=== PATIENT | female | born 1970 | race Caucasian/White ===

== ENCOUNTER 2021-03-16 17:33 | Emergency (ER) | payer BC, OTHER ==
[~2021-03-16] VITALS: Ht 160 cm; Wt 54.0 kg
--- NOTE | 2021-03-16 17:54 | EKG ---
[address] [address] Test Date: 2021-03-16 Test Time: 17:37:00 Pat Name: ADRIANA GRIGSBY Department: Room: Gender: F Admissions Counselor: HAILEE : 1970 Requested By: VERENICE JORDAN Order Number: [id number] Reading MD: Measurements Intervals [place] Rate: 90 P: 32 TX: 118 QRS: 35 QRSD: 86 T: 149 QT: 334 QTc: 412 Interpretive Statements SINUS RHYTHM LEFT ATRIAL ABNORMALITY T ABNORMALITY IN LATERAL LEADS ABNORMAL ECG RI6.02 No previous ECG available for comparison
--- NOTE | 2021-03-16 17:57 | PHYS DOC ---
General Adult EDM: Chief Complaint: CHEST PAIN HPI: HPI: 50-year-old female presents with chest pain and headache. Patient was having chest pressure and left arm tingling yesterday. It continued today. She has had some shortness of breath that is worse than normal. She does not currently have any chest pain but she has a right frontal headache that is a throbbing sensation. She does not typically get headaches. The patient had quadruple bypass surgery in December. She went in for routine check and ended up having quadruple bypass. The patient had no chest pain or symptoms prior to that surgery. She has had no recent changes to medications. She takes baby aspirin and metoprolol. Patient denies fever or chills. (VERENICE JORDAN DO) Review of Systems: Review of Systems: Constitutional: Denies fever or chills Eyes: Denies change in visual acuity HENT: Denies nasal congestion or sore throat Respiratory: Denies cough or shortness of breath Cardiovascular: Chest pain GI: Denies abdominal pain, nausea, vomiting, bloody stools or diarrhea : Denies dysuria Musculoskeletal: Denies back pain or joint pain Integument: Denies rash Neurologic: Headache. Denies focal weakness or sensory changes Endocrine: Denies polyuria or polydipsia Lymphatic: Denies swollen glands Psychiatric: Denies depression or anxiety (VERENICE JORDAN DO) Allergies: Allergies: Allergies Coded Allergies Type Severity Reaction Last Updated Verified Penicillins Allergy Unknown 03/16/21 Yes Sulfa (Sulfonamide Antibiotics) Allergy Unknown 03/16/21 Yes (VERENICE JORDAN DO) Physical Exam: PE: Constitutional: Well developed, well nourished, no acute distress, non-toxic appearance. [] HENT: Normocephalic, atraumatic, bilateral external ears normal, oropharynx moist, no oral exudates, nose normal. [] Eyes: PERRLA, EOMI, conjunctiva normal, no discharge. [] Neck: Normal range of motion, no tenderness, supple, no stridor. [] Cardiovascular:Heart rate regular rhythm, no murmur [] Lungs & Thorax: Bilateral breath sounds clear to auscultation [] Abdomen: Bowel sounds normal, soft, no tenderness, no masses, no pulsatile masses. [] Skin: Warm, dry, no erythema, no rash. Multiple tattoos. [] Back: No tenderness, no CVA tenderness. [] Extremities: No tenderness, no cyanosis, no clubbing, ROM intact, no edema. [] Neurologic: Alert and oriented X 3, normal motor function, normal sensory function, no focal deficits noted. [] Psychologic: Affect normal, judgement normal, mood normal. [] (VERENICE OJRDAN DO) EKG: EKG: Sinus rhythm, rate 90, normal axis, no ST elevation or depression, inverted T wave in V6. [] (VERENICE JORDAN DO) Radiology/Procedures: Radiology/Procedures: [] (VERENICE JORDAN DO) Heart Score: C/O Chest Pain: Yes HEART Score for Chest Pain: HEART Score for Chest Pain Response (Comments) Value History Slighlty/Non-Suspicious 0 ECG Nonspecific Repolarizatio 1 Age >45 - < 65 1 Risk Factors >3 Risk Factors or Hx CAD 2 Troponin < Normal Limit 0 Total 4 Risk Factors: Risk Factors: DM, Current or recent (<one month) smoker, HTN, HLP, family history of CAD, obesity. Risk Scores: Score 0 - 3: 2.5% MACE over next 6 weeks - Discharge Home Score 4 - 6: 20.3% MACE over next 6 weeks - Admit for Clinical Observation Score 7 - 10: 72.7% MACE over next 6 weeks - Early Invasive Strategies (VERENICE JORDAN DO) Course & Med Decision Making: Course & Med Decision Making Pertinent Labs and Imaging studies reviewed. (See chart for details) The patient's EKG has one inverted T wave in V6, but is otherwise unremarkable. The rest of her work-up is pending. I am signing the patient out to Dr. Da Silva at 1800. [] (VERENICE JORDAN DO) Course & Med Decision Making Patient's care transferred to me at checkout for chest pain work-up. Patient with quadruple bypass in December on aspirin and metoprolol. Vital signs notable for hypertension. Patient states chest pain is 0-1 now and much better than earlier. Denies any Covid/flu/cold symptoms. Laboratory analysis notable for elevated troponin and BNP. EKG with no STEMI but signs of ischemia in lateral leads and aVR. Started on heparin, gave aspirin, gave beta-ting, gave statin and nitroglycerin. Discussed findings with patient and recommended admission. Patient agreed and requested to be transferred to [facility] where she had her bypass done. Discussed patient with [facility] transfer.Dr. Lambert who agreed with plan of transfer and admission for NSTEMI and cardiovascular evaluation and treatment. (MAXINE DA SILVA MD) Dragon Disclaimer: Dragashley Disclaimer: This electronic medical record was generated, in whole or in part, using a voice recognition dictation system. (VERENICE JORDAN DO) Departure Departure: Impression: Primary Impression: Chest pain Additional Impression: History of heart bypass surgery Referrals: PCP,NO (PCP) VERENICE JORDAN DO March 16, 2021 17:57 MAXINE DA SILVA MD March 16, 2021 19:01
[2021-03-16] MEDS ORDERED: ASPIRIN CHEWABLE 81 MG TABLET. PO ONE (18:00)
[2021-03-16 18:16] LABS: BASO # 0.1 x10^3/uL (0.0-0.2); BASO % 2 % (0-3); EOS # 0.3 x10^3/uL (0.0-0.7); EOS % 4 % (0-3); HEMATOCRIT 32.3 % (36.0-47.0); HEMOGLOBIN 10.2 g/dL (12.0-15.5); LYMPH # 1.4 x10^3/uL (1.0-4.8); LYMPH % 23 % (24-48); MEAN CORPUSCULAR HEMOGLOBIN 26 pg (25-35); MEAN CORPUSCULAR HGB CONC 32 g/dL (31-37); MEAN CORPUSCULAR VOLUME 83 fL (79-100); MONO # 0.3 x10^3/uL (0.0-1.1); MONO % 6 % (0-9); NEUT # 4.2 x10^3uL (1.8-7.7); NEUT % 66 % (31-73); PLATELET COUNT 230 x10^3/uL (140-400); RED BLOOD COUNT 3.89 x10^6/uL (3.50-5.40); RED CELL DISTRIBUTION WIDTH 15.8 % (11.5-14.5); WHITE BLOOD COUNT 6.4 x10^3/uL (4.0-11.0)
--- NOTE | 2021-03-16 18:18 | RAD ---
XR CHEST 1V History: Reason: CP / Spl. Instructions: / History: Comparison: None. Findings: No consolidation or pleural effusion. Normal heart size. No pneumothorax. Surgical clips right upper quadrant. Prior median sternotomy. Impression: 1. No acute cardiopulmonary process. Electronically signed by: Hao Sterling DO (03/16/2021 6:15 PM) [facility]
[2021-03-16 18:25] LABS: GFR 58.9; POTASSIUM 3.9 mmol/L (3.5-5.1)
[2021-03-16 18:31] LABS: ALBUMIN 3.7 g/dL (3.4-5.0); TOTAL BILIRUBIN 0.3 mg/dL (0.2-1.0); TOTAL PROTEIN 7.5 g/dL (6.4-8.2)
--- NOTE | 2021-03-16 18:33 | RAD ---
Exam: CT head INDICATION: Headache, chest pain, hypertension TECHNIQUE: Sequential axial images through the head were obtained without the administration of IV co ntrast. Exposure: One or more of the following in the visualized dose reduction techniques were utilized for this examination: 1. Automated exposure control 2. Adjustment of the MA and/or KV according to patient size 3. Use of iterative of reconstructive technique Comparisons: None FINDINGS: No focal parenchymal lesion or hemorrhage is identified. There is no midline shift or sulcal effaceme nt. No acute vascular territory infarction is identified. Roth-white distinction is preserved. The ventricular system is within normal limits without compression hydrocephalus. The basal cisterns are well maintained. There is complete opacification of the left maxillary sinus. Hyperattenuating material noted within t he left maxillary sinus. No acute fractures. IMPRESSION: Incompletely visualized complete opacification of the left maxillary sinus. Findings could relate to sinusitis however direct visualization is recommended to exclude neoplasm/polyp. Electronically signed by: Nayan Salazar MD (03/16/2021 6:31 PM) [facility]
[2021-03-16] MEDS ORDERED: MORPHINE SULFATE 2 MG/ML DISP.SYRIN. IV ONE (19:15)
[2021-03-16] MEDS: NITROGLYCERIN SUBLINGUAL 0.4 MG BOTTLE OF 25. SL PRN ×3 (19:17→20:11)
[2021-03-16] MEDS ORDERED: METOPROLOL TART IMMED RELEASE 25 MG TABLET. PO ONE (20:00)
[2021-03-16] MEDS ORDERED: ATORVASTATIN CALCIUM 20 MG TABLET PO ONE (20:15)
[2021-03-16 20:43] VITALS: BP 149/96
== END 2021-03-16 21:50 | disposition short-term general hospital (02) ==
LOC: ER 17:33
DX: R07.89 Other chest pain (principal); R51.9 Headache, unspecified; Z88.0 Allergy status to penicillin; Z88.2 Allergy status to sulfonamides
CPT/HCPCS: 36415; 70450; 71045; 80053; 83880; 84484; 85025; 93005; 96374; 99285; J2270

== ENCOUNTER 2021-03-27 15:02 | Emergency (ER) | payer BC ==
[~2021-03-27] VITALS: Ht 160 cm; Wt 54.0 kg
--- NOTE | 2021-03-27 15:25 | PHYS DOC ---
Past History Past Medical History: CAD, Cancer, High Cholesterol, Hypertension Past Surgical History: Coronary Bypass Surgery, Gastric Bypass, Hysterectomy, Other Additional Past Surgical Histo: TUMMY TUCK, BREAST AUGMENTATION, LITHROTRIPSY Alcohol Use: None General Adult EDM: Chief Complaint: SHORTNESS OF BREATH HPI: HPI: 50-year-old female presents with shortness of breath. I saw the patient recently in the ER with similar complaint when she had chest pain at that time. Patient denies chest pain at this time. She was at work and just felt like she could not catch her breath. She is required to wear a mask at work because she is not vaccinated for COVID-19. The patient also has a mild headache. During her last visit to the ER she was transferred to [facility] for elevated troponin. She states that they did CT of the chest and did not find a pulmonary embolus. They trended her troponin unchanged her medications but sent her home. She did not have a stress test or cardiac cath. She denies fever or chills. She denies abdominal pain, nausea, vomiting, dysuria, urinary frequency or constipation. Review of Systems: Review of Systems: Constitutional: Denies fever or chills Eyes: Denies change in visual acuity HENT: Denies nasal congestion or sore throat Respiratory: Shortness of breath. Cardiovascular: Denies chest pain or edema GI: Denies abdominal pain, nausea, vomiting, bloody stools or diarrhea : Denies dysuria Musculoskeletal: Denies back pain or joint pain Integument: Denies rash Neurologic: Denies headache, focal weakness or sensory changes Endocrine: Denies polyuria or polydipsia Lymphatic: Denies swollen glands Psychiatric: Denies depression or anxiety Allergies: Allergies: Allergies Coded Allergies Type Severity Reaction Last Updated Verified Penicillins Allergy Unknown 03/16/21 Yes Sulfa (Sulfonamide Antibiotics) Allergy Unknown 03/16/21 Yes magnesium Allergy Unknown 03/27/21 Yes paclitaxel Allergy Unknown 03/16/21 Yes Physical Exam: PE: Constitutional: Well developed, well nourished, no acute distress, non-toxic appearance. [] HENT: Normocephalic, atraumatic, bilateral external ears normal, oropharynx moist, no oral exudates, nose normal. [] Eyes: PERRLA, EOMI, conjunctiva normal, no discharge. [] Neck: Normal range of motion, no tenderness, supple, no stridor. [] Cardiovascular: Heart rate 70, regular rhythm, no murmur [] Lungs & Thorax: Bilateral breath sounds clear to auscultation [] Abdomen: Bowel sounds normal, soft, no tenderness, no masses, no pulsatile masses. [] Skin: Warm, dry, no erythema, no rash. [] Back: No tenderness, no CVA tenderness. [] Extremities: No tenderness, no cyanosis, no clubbing, ROM intact, no edema. [] Neurologic: Alert and oriented X 3, normal motor function, normal sensory function, no focal deficits noted. [] Psychologic: Affect normal, judgement normal, mood anxious. [] Current Patient Data: Vital Signs: Vital Signs Date Time Temp Pulse Resp B/P (MAP) Pulse Ox O2 Delivery O2 Flow Rate FiO2 03/27/21 15:09 97.8 72 18 139/96 (110) 98 Room Air EKG: EKG: Sinus rhythm, rate 70, normal axis, no ST elevation or depression. [] Radiology/Procedures: Radiology/Procedures: [] Impressions: EXAM: CHEST 1 VIEW History: Chest pain COMPARISON: 03/16/2021 TECHNIQUE: Single portable radiograph of the chest FINDINGS: The cardiac silhouette is unremarkable. The lungs are clear bilaterally. The costophrenic sulci are clear and well demarcated. Median sterno torito wires identified. IMPRESSION: No radiographic evidence of an acute cardiopulmonary process. Electronically signed by: Chris Issa MD (03/27/2021 3:36 PM) [id number] DICTATED AND SIGNED BY: CHRIS ISSA MD DATE: 03/27/21 1534 CC: VERENICE JORDAN DO; [facility] ~MTH0 0 Heart Score: C/O Chest Pain: No Risk Factors: Risk Factors: DM, Current or recent (<one month) smoker, HTN, HLP, family history of CAD, obesity. Risk Scores: Score 0 - 3: 2.5% MACE over next 6 weeks - Discharge Home Score 4 - 6: 20.3% MACE over next 6 weeks - Admit for Clinical Observation Score 7 - 10: 72.7% MACE over next 6 weeks - Early Invasive Strategies Course & Med Decision Making: Course & Med Decision Making Pertinent Labs and Imaging studies reviewed. (See chart for details) The patient's labs are unremarkable except for an elevated troponin of 0.293. This is slightly less than her previous visit but certainly elevated. Her EKG is negative for ST elevation. The patient has had her cardiac care at [facility]. I contacted them and spoke with the repossession agent, Dr. Hutton and she believes the patient needs further work-up and should be transferred back to [facility]. Dr. Go, the transfer doctor has accepted her for transfer and admission. The patient will go by ambulance. [] Dragon Disclaimer: Dragon Disclaimer: This electronic medical record was generated, in whole or in part, using a voice recognition dictation system. Departure Departure: Impression: Primary Impression: Elevated troponin Disposition: 02 SHORT TERM HOSPITAL Condition: GUARDED Referrals: [facility] (PCP) VERENICE JORDAN DO Mar 27, 2021 15:25
--- NOTE | 2021-03-27 15:39 | RAD ---
EXAM: CHEST 1 VIEW History: Chest pain COMPARISON: 03/16/2021 TECHNIQUE: Single portable radiograph of the chest FINDINGS: The cardiac silhouette is unremarkable. The lungs are clear bilaterally. The costophrenic sulci are clear and well demarcated. Median sternotomy wires identified. IMPRESSION: No radiographic evidence of an acute cardiopulmonary process. Electronically signed by: Chris Issa MD (03/27/2021 3:36 PM) [id number]
[2021-03-27 15:55] LABS: BASO # 0.1 x10^3/uL (0.0-0.2); BASO % 1 % (0-3); EOS # 0.3 x10^3/uL (0.0-0.7); EOS % 4 % (0-3); HEMATOCRIT 31.5 % (36.0-47.0); HEMOGLOBIN 9.9 g/dL (12.0-15.5); LYMPH # 1.2 x10^3/uL (1.0-4.8); LYMPH % 17 % (24-48); MEAN CORPUSCULAR HEMOGLOBIN 26 pg (25-35); MEAN CORPUSCULAR HGB CONC 32 g/dL (31-37); MEAN CORPUSCULAR VOLUME 83 fL (79-100); MONO # 0.4 x10^3/uL (0.0-1.1); MONO % 6 % (0-9); NEUT # 4.9 x10^3uL (1.8-7.7); NEUT % 72 % (31-73); PLATELET COUNT 225 x10^3/uL (140-400); WHITE BLOOD COUNT 6.9 x10^3/uL (4.0-11.0)
[2021-03-27 16:25] LABS: CALCIUM 8.9 mg/dL (8.5-10.1); GFR 58.9; POTASSIUM 4.1 mmol/L (3.5-5.1)
[2021-03-27 16:30] LABS: ALBUMIN 3.4 g/dL (3.4-5.0); TOTAL BILIRUBIN 0.3 mg/dL (0.2-1.0); TOTAL PROTEIN 6.8 g/dL (6.4-8.2)
--- NOTE | 2021-03-27 16:38 | EKG ---
[address] [address] Test Date: 2021-03-27 Test Time: 15:21:03 Pat Name: ADRIANA GRIGSBY Department: Room: Gender: F Warehouse Record Clerk: ED9 : 1970 Requested By: VERENICE JORDAN Order Number: [id number] Reading MD: Measurements Intervals [place] Rate: 70 P: 26 DC: 128 QRS: 34 QRSD: 86 T: 150 QT: 390 QTc: 424 Interpretive Statements SINUS RHYTHM LEFT ATRIAL ABNORMALITY ST & T ABNORMALITY, CONSIDER HIGH LATERAL ISCHEMIA OR LEFT VENTRICULAR STRAIN ABNORMAL ECG RI6.02 No previous ECG available for comparison
[2021-03-27 17:48] VITALS: BP 133/77
[2021-03-27 19:54] LABS: BILIRUBIN,URINE NEG (NEG); CLARITY,URINE CLEAR; COLOR,URINE STRAW; GLUCOSE,URINE NEG (NEG); NITRITE,URINE POS (NEG); UROBILINOGEN,URINE 0.2 mg/dL (0.2 mg/dL)
[2021-03-27 19:55] LABS: BACTERIA,URINE MOD /HPF (0-FEW); RBC,URINE 0 /HPF (0-2); SQUAMOUS EPITHELIAL CELL,UR FEW /LPF; WBC,URINE OCC /HPF (0-4)
== END 2021-03-27 20:35 | disposition short-term general hospital (02) ==
LOC: ER 15:02
DX: R77.8 Other specified abnormalities of plasma proteins (principal); R07.9 Chest pain, unspecified; E78.5 Hyperlipidemia, unspecified; I10 Essential (primary) hypertension; Z88.0 Allergy status to penicillin; Z88.2 Allergy status to sulfonamides; Z88.8 Allergy status to other drugs, medicaments and biological substances; Z90.710 Acquired absence of both cervix and uterus
CPT/HCPCS: 36415; 71045; 80053; 81001; 84484; 85025; 87077; 87086; 87186; 93005; 99285-25